=== PATIENT | male | born 1975 | race Caucasian/White ===

== ENCOUNTER 2018-02-24 07:11 | Emergency (ER) | payer OTHER, SELFPAY ==
[2018-02-24] MEDS ORDERED: Cyclobenzaprine 10 MG TAB ONE (08:07)
[2018-02-24] MEDS ORDERED: Ketorolac Tromethamine 30 MG/ML VIAL ONE (08:07)
--- NOTE | 2018-02-24 09:00 | RAD ---
PA AND LATERAL CHEST: Date: 02/24/18 INDICATION: Back pain after working on roof. This is predominantly in the left posterior rib region. Patient kulwinder es fall or trauma. FINDINGS: No confluent air space opacity or pleural effusion is evident. There is mild multilevel spondylosis o f the thoracic spine. Heart size and pulmonary vasculature are normal. There is some physiologic wedg ing of the vertebra at the thoracolumbar junction which is within normal limits. No definite acute os seous abnormality is evident. IMPRESSION: No acute cardiopulmonary abnormality. POS: [facility]
== END 2018-02-24 10:28 | disposition home or self-care (01) ==
LOC: ERS 07:11
DX: S29.012A Strain of muscle and tendon of back wall of thorax, initial encounter (principal); X58.XXXA Exposure to other specified factors, initial encounter
CPT/HCPCS: 71046; 96372; J1885